=== PATIENT | male | born 1980 | race Asian ===

== ENCOUNTER 2024-01-12 06:33 | Outpatient (REF) | payer OTHER, SELFPAY ==
--- NOTE | ~2024-01-12 | US_ITS ---
EXAMINATION: US ABDOMEN COMPLETE CLINICAL INFORMATION: Lower abdominal pain. COMPARISON: None available. TECHNIQUE: Real-time imaging of the abdominal viscera. FINDINGS: PANCREAS: The visualized portions of the pancreas are unremarkable but a large portion of the gland is obscured by bowel gas. ABDOMINAL AORTA: The proximal, mid, and distal segments are normal in caliber. INFERIOR VENA CAVA: Visualized portions are normal. LIVER: The liver is enlarged measuring over 18 cm in greatest length with heterogeneously increased echogenicity consistent with hepatic steatosis. The liver contour is normal. There is a 2.2 x 0.9 x 1.6 cm echogenic mass in the right lobe of the liver that has appearances consistent with a hemangioma. No other liver masses are seen. There is no intrahepatic biliary duct dilatation seen. GALLBLADDER: The gallbladder is physiologically distended without evidence of stones, sludge, polyps, wall thickening or pericholecystic fluid. COMMON BILE DUCT: Normal in caliber measuring 0.2 cm in diameter. RIGHT KIDNEY: No hydronephrosis. No renal calculi or focal parenchymal lesions. The kidney measures 12.0 cm in maximum dimension. LEFT KIDNEY: No hydronephrosis. No renal calculi or focal parenchymal lesions. The kidney measures 11.0 cm in maximum dimension. SPLEEN: Spleen is upper limits of normal in size at 12.0 cm in maximum dimension. FREE FLUID: None. US/US abdomen complete IMPRESSION: 1. Enlarged fatty liver with 2.2 cm hemangioma. 2. Borderline splenomegaly. 3. Probable benign cavernous hemangioma right lobe of liver. If certainty is needed, MRI would be the exam of choice. Electronically signed by: Italo Emmanuel MD 01/12/2024 01:34 PM EDT
== END 2024-01-12 06:34 | disposition home or self-care (01) ==
LOC: HO.UMASIMG 06:33
PROVIDERS: Visit Provider Family Medicine
DX: R10.30 Lower abdominal pain, unspecified (principal)
CPT/HCPCS: 76700